=== PATIENT | female | born 1935 | race Caucasian/White ===

== ENCOUNTER 2020-11-06 09:04 | Day surgery (SDC) | payer MEDICARE, BC ==
[~2020-11-06] VITALS: Ht 160 cm; Wt 60.9 kg
[~2020-11-06 09:04] MED LIST: ACET-1600 PO; ALEN70TA3 PO; CHOL10003 PO; HYDR25TA6 PO; MELO15TA24 PO; METO50TA82 PO; MULT-257 PO; POTA2.5T PO
[2020-11-06] MEDS ORDERED: CHLORHEXIDINE 15 ML UDC PO ONE (10:00)
[2020-11-06] MEDS ORDERED: LACTATED RINGERS 1,000 ML IV SCH (10:00)
[2020-11-06 10:25] VITALS: BP 122/59
[2020-11-06] MEDS ORDERED: OMNIPAQUE 350 MG/ML, 50 ML BOTTLE ONE (10:29)
[2020-11-06] MEDS ORDERED: PROPOFOL 50 ML ONE (11:23)
[2020-11-06] MEDS ORDERED: GLUCAGON 1 MG ONE (11:44)
[2020-11-06] MEDS ORDERED: FENTANYL PF 100 MCG/2ML ONE (11:55)
[2020-11-06] MEDS ORDERED: FENTANYL PF 100 MCG/2ML IV PRN (12:00)
[2020-11-06] MEDS ORDERED: ONDANSETRON 2MG/ML, 2ML IVPush PRN (12:00)
[2020-11-06] MEDS ORDERED: LABETALOL 5MG/ML, 20ML IV PRN (12:00)
[2020-11-06] MEDS ORDERED: hydrALAzine 20 MG/ML, 1ML IV PRN (12:00)
[2020-11-06] MEDS ORDERED: ACETAMINOPHEN 325 MG TABLET PO PRN (12:00)
[2020-11-06] MEDS ORDERED: PROPOFOL 10 MG/ML, 20ML ONE (12:01)
[2020-11-06] MEDS ORDERED: SUCCINYLCHOLINE 20 MG/ML, 10ML ONE (12:04)
== END 2020-11-06 13:01 | disposition home or self-care (01) ==
LOC: OUT 09:04
PROVIDERS: ATTEND Internal Medicine
DX: K80.32 Calculus of bile duct with acute cholangitis without obstruction (principal); B37.81 Candidal esophagitis; I10 Essential (primary) hypertension; Z20.822 Contact with and (suspected) exposure to COVID-19; Z79.1 Long term (current) use of non-steroidal anti-inflammatories (NSAID); Z79.899 Other long term (current) drug therapy; Z87.891 Personal history of nicotine dependence; Z88.0 Allergy status to penicillin; Z88.5 Allergy status to narcotic agent
CPT/HCPCS: 43264; 43275; 74328; 87635; C1769; J0330; J1610; J2704; J3010; J7120; Q9967